=== PATIENT | female | born 1960 | race Caucasian/White ===

== ENCOUNTER 2019-10-03 14:14 | Outpatient (CLI) | payer MEDICARE, SELFPAY ==
--- NOTE | ~2019-10-03 | XR_ITS ---
XR lumbar spine 2-3V DATE: 10/03/2019 15:19 INDICATION: Acute low back pain, radiating down legs. No injury. TECHNIQUE: AP, lateral, coned lateral lumbosacral views COMPARISON: None FINDINGS: There is borderline grade 2/grade 3 spondylolisthesis at L5-S1. There is severe degenerative disc disease at L5-S1. Lumbar interspaces otherwise are relatively preserved. Diffuse osteopenia. No fracture or bone destruction is evident. The included lower thoracic and lumbar pedicles appear in tact. The sacroiliac joints appear normal. Extensive calcification of the abdominal aorta, without evidence of aneurysm. IMPRESSION: Borderline grade 2/grade 3 anterolisthesis at L5-S1 Severe degenerative disc disease at L5-S1 Reviewed, dictated and finalized at location A.
--- NOTE | ~2019-10-03 | US_ITS ---
EXAMINATION: US arterial ankle brachial ind DATE: 10/03/2019 15:07 INDICATION: Bilateral lower extremity pain TECHNIQUE: Segmental pressures and plethysmographic and Doppler waveforms of the brachial and lower e xtremity arteries were obtained. COMPARISON: None. FINDINGS: Right and left brachial artery pressures of 127 mm Hg and 121 mm Hg, respectively, are concordant (no rmal difference <= 30 mmHg). The right ankle-brachial index (SOBIA) is 0.94 (normal >= 0.9-1.0). The right great toe-brachial index (TBI) is 0.86 (normal >= 0.65). Arterial Doppler waveforms are biphasic. The left SOBIA is 0.84. The left TBI is 1.04. Arterial Doppler waveforms are biphasic. IMPRESSION: Mildly diminished left SOBIA of 0.84 Reviewed, dictated and finalized at Location A. Reviewed, dictated and finalized at location A.
== END 2019-10-03 14:15 | disposition home or self-care (01) ==
LOC: ANHIMG 14:20
PROVIDERS: PCP Internal Medicine; Visit Provider Internal Medicine
DX: M79.604 Pain in right leg (principal); I70.0 Atherosclerosis of aorta; M51.37 Other intervertebral disc degeneration, lumbosacral region; M85.88 Other specified disorders of bone density and structure, other site; M79.89 Other specified soft tissue disorders
CPT/HCPCS: 72100; 93922

== ENCOUNTER → 2020-01-26 08:51 | Outpatient (CLI) | payer MEDICARE, SELFPAY ==
--- NOTE | ~2020-01-26 | MMUS_ITS ---
EXAMINATION: MM screening deepthi BI w katarzyna, US breast RT complete HISTORY: Screening mammogram. 12 month follow-up of probably benign right breast mass at 9:00 7 cm fr om nipple TECHNIQUE: Craniocaudal and mediolateral oblique 3-D tomosynthesis images were obtained and synthetic 2-D images were generated. CAD analysis was submitted and interpreted. COMPARISON: 12/20/2018 limited right breast ultrasound 06/02/2018 limited right breast ultrasound 11/23/2017 diagnostic right digital mammogram and limited right breast ultrasound 11/09/2017 bilateral digital screening mammogram BREAST PARENCHYMAL COMPOSITION: The breasts are heterogeneously dense, which may obscure small masses . MAMMOGRAM FINDINGS: There is no evidence of suspicious mass, calcification, or architectural distorti on to suggest malignancy in either breast. There has been no suspicious interval change. LIMITED RIGHT BREAST ULTRASOUND FINDINGS: Previously reported 6 x 3 mm circumscribed parallel hypoech oic mass at 9:00 7 cm from the nipple now measures approximately 2 x 2.7 x 3 mm. This is sonolucent, with through transmission, likely a small cyst. IMPRESSION: 1. No mammographic evidence of malignancy. 2. Recommend routine screening mammography in one year. BI-RADS Category 2: Benign finding(s). Reviewed, dictated and finalized at location A. [facility] SERVICES ASSISTANT IMPRESSION: 1. No mammographic evidence of malignancy. 2. Recommend routine screening mammography in one year. BI-RADS Category 2: Benign finding(s).
== END ==
PROVIDERS: PCP Internal Medicine; Visit Provider Internal Medicine
DX: Z12.31 Encounter for screening mammogram for malignant neoplasm of breast (principal); N63.12 Unspecified lump in the right breast, upper inner quadrant
CPT/HCPCS: 76641; 77063; 77067

== ENCOUNTER → 2021-05-06 09:58 | Outpatient (CLI) | payer MEDICARE, SELFPAY ==
--- NOTE | ~2021-05-06 | MMUS_ITS ---
EXAMINATION: MM diagnostic deepthi BI w katarzyna, US breast LT limited HISTORY: Palpable lump of the lower-outer quadrant of the left breast TECHNIQUE: Craniocaudal, mediolateral, and mediolateral oblique 3-D tomosynthesis images of the guero ts were performed and synthetic 2-D images were generated. CAD analysis was submitted and interpreted . High resolution limited left breast ultrasound was performed. COMPARISON: 02/05/2020, 11/23/2017, 11/09/2017 BREAST PARENCHYMAL COMPOSITION: The breasts are heterogeneously dense, which may obscure small masses . FINDINGS: MAMMOGRAPHIC FINDINGS: No mammographic correlate is identified for the reported palpable abnormality of the left breast. The re is no suspicious mass, calcification, or architectural distortion in either breast to suggest ton gnancy. There has been no suspicious interval change. ULTRASOUND: There is a 9 mm x 2 mm oval, circumscribed, parallel, hypoechoic mass in the skin of the left breast corresponding to the palpable abnormality of concern which appears to demonstrate communication to th e skin surface on some images. IMPRESSION: 1. Findings most consistent with a sebaceous cyst of the left breast corresponding to the palpable ab normality of concern. No mammographic or sonographic evidence of malignancy. Clinical follow-up is re commended. 2. Recommend routine screening mammography in one year. BI-RADS Category 2: Benign finding(s). Reviewed, dictated and finalized at location A. IMPRESSION: 1. Findings most consistent with a sebaceous cyst of the left breast correspond ing to the palpable abnormality of concern. No mammographic or sonographic evid ence of malignancy. Clinical follow-up is recommended. 2. Recommend routine screening mammography in one year. BI-RADS Category 2: Benign finding(s).
== END ==
PROVIDERS: PCP Internal Medicine; Visit Provider Internal Medicine
DX: N64.59 Other signs and symptoms in breast (principal)
CPT/HCPCS: 76642; 77062; 77066; G0279

== ENCOUNTER → 2021-07-10 11:13 | Outpatient (CLI) | payer MEDICARE, SELFPAY ==
--- NOTE | ~2021-07-10 | DEXA_ITS ---
Bone Density Report Name: ROMÁN COHEN Age: 60 Sex: Female Ethnicity: White Date of : 1960 Indication: postmenopausal osteoporosis; height loss; seizure disorder; hysterectomy; Referring Provider: Tad, Sil Barajas Study: Bone densitometry was performed. Exam Date: July 10, 2021 Accession number: [id number] Bone Density: Region BMD T-score Z-score Classification AP Spine (L1-L4) 0.832 -2.0 -0.4 Osteopenia Femoral Neck (Left) 0.668 -1.6 -0.2 Osteopenia Total Hip (Left) 0.758 -1.5 -0.4 Osteopenia Femoral Neck (Right) 0.699 -1.3 0.0 Osteopenia Total Hip (Right) 0.733 -1.7 -0.6 Osteopenia Total Hip Mean 0.746 -1.6 -0.5 Osteopenia World Health Organization criteria for BMD impression classify patients as: Normal (T-score at or above -1.0), Osteopenia (T-score between -1.0 and -2.5), or Osteoporosis (T-score at or below -2.5). 10-year Fracture Risk(1): Major Osteoporotic Fracture 7.8% Hip Fracture 1.2% Reported Risk Factors: [place] (), Neck BMD=0.668, BMI=42.1, smoking (1) FRAX(R) Version 3.08. Fracture probability calculated for an untreated patient. Fracture probability may be lower if the patient has received treatment. Previous Exams: Region Exam Age BMD T-score BMD Change BMD Change Date g/cm2 vs Baseline vs Previous AP Spine(L1-L4) 07/10/2021 60 0.832 -2.0 0.057* 0.057* 11/09/2017 56 0.775 -2.5 Total Hip(Left) 07/10/2021 60 0.758 -1.5 0.037* 0.037* 11/09/2017 56 0.721 -1.8 Total Hip(Right) 07/10/2021 60 0.733 -1.7 0.046* 0.046* 11/09/2017 56 0.687 -2.1 *Denotes significance at 95% confidence level, LSC for AP Spine = 0.022 g/cm2, LSC for Total Hip = 0.027 g/cm2 Clinical Information Provided by Patient: Smokes Has used the following medications: Vitamin D, Calcium Has the following medical conditions: Any Seizure Disorders, Hysterectomy, COPD Patient maximum height was 67 Menopause Age: 46 Drinks caffeinated beverages Onset of menses at age 8.5 Number of children 1 Missed period for more than 6 months in a row Impression: The patient has low bone mass, based on the Total Spine T-score. The patient has an estimated ten-year risk of hip fracture of 1.2% and an estimated ten-year risk of major fracture of 7.8%, based on the WHO FRAX algorithm. The patient has risk factors, including: smoking. No significant bone loss was observed.
== END ==
PROVIDERS: PCP Internal Medicine; Visit Provider Internal Medicine
DX: Z78.0 Asymptomatic menopausal state (principal); M85.88 Other specified disorders of bone density and structure, other site; M85.852 Other specified disorders of bone density and structure, left thigh; M85.851 Other specified disorders of bone density and structure, right thigh
CPT/HCPCS: 77080

== ENCOUNTER 2023-02-18 00:52 | Day surgery (SDC) | payer MEDICARE, SELFPAY ==
[2023-01-28 14:14] VITALS: BMI 39.5
--- NOTE | 2023-02-16 12:16 | SUR.PREOP ---
Patient called regarding upcoming procedure. Reviewed preop instructions, appointment times, and procedure prep.
[2023-02-18 08:53] VITALS: BMI 42.6
[2023-02-18] MEDS: LACTATED RINGERS 1,000 ML 150 ML IV CONT (09:03)
--- NOTE | 2023-02-18 09:13 | P.HP_ITS ---
History of Present Illness History of Present Illness Consent: Risks, benefits, and alternatives have been discussed and questions answered. Patient agrees to proceed with procedure. Chief complaint: hx of colon polyps Narrative: Veronica Carias is a 62 year old female Presents for screening colonoscopy. Patient reports having had colon polyps 5 years ago. Patient denies any abdominal pain. Her bowel habits reported to be normal. Family history noncontributory. Review of Systems Review of Systems: Review of systems noncontributory. [facility] Family History Family History (Updated 09/20/15 @ 23:21 by DOCTOR UNKNOWN) Sibling Patient's sister is in good health Carcinoma of colon Social History Social History Smoking packs per day: 1 Smoking cigarettes per day: 20.0 Years smoked: 40 Smoking pack-years: 40.00 Smoking status: Current every day smoker Tobacco type: cigarettes Smoking end date: 02/22/11 Alcohol intake: never Substance use: never Substance use type: does not use Living arrangements: with family Spiritual care concerns: No Meds Home Medications and Allergies Home Medications Medication Instructions Recorded Confirmed Type alendronate 70 mg tablet 70 mg PO WEEKLY 01/28/23 01/28/23 History carbamazepine 200 mg tablet 400 mg PO TID 01/28/23 02/18/23 History hydrochlorothiazide 12.5 mg tablet 12.5 mg PO DAILY 01/28/23 01/28/23 History levetiracetam 1,000 mg tablet 1,000 mg PO BID 01/28/23 01/28/23 History losartan 50 mg tablet 50 mg PO HS 01/28/23 01/28/23 History rosuvastatin 10 mg tablet 10 mg PO HS 01/28/23 01/28/23 History umeclidinium 62.5 mcg-vilanterol 1 ea inhalation DAILY 01/28/23 02/18/23 History 25 mcg/actuation powdr for inhalation (Anoro Ellipta) Allergies Allergy/AdvReac Type Severity Reaction Status Date / Time Sulfa (Sulfonamide Allergy Mild Unknown Verified 02/18/23 08:38 Antibiotics) codeine Allergy Unknown Unknown Verified 02/18/23 08:38 Penicillins Allergy Unknown Unknown Verified 02/18/23 08:38 sulfanilamide Allergy Unknown Unknown Verified 02/18/23 08:38 sulfur dioxide Allergy Unknown Unknown Verified 02/18/23 08:38 Exam Narrative: Physical exam reveals patient to be alert. Vital signs stable. HEENT exam is unremarkable. Patient is anicteric. Lungs are clear to auscultation and percussion. Heart is without murmur or extra sounds. Abdomen Is obese. bowel sounds are present soft nontender with no organomegaly. Digital external rectal exam is normal. Assessment and Plan Assessment and plan (1) History of colon polyps: Code(s): Z86.010 - Personal history of colonic polyps Status: Acute Assessment and Plan: Patient is reported to have had colon polyps 5 years ago. Plan for surveillance colonoscopy at this time and consider this at intervals in the future.
--- NOTE | 2023-02-18 09:28 | P.PNAN_ITS ---
Anes - Initial Pre Proc Eval Procedure: Operation Date: 02/18/23 10:00 Proposed Procedures p Colonoscopy - Umair Velasquze MD Date/Time: 02/18/23 09:28 Surgeon: Umair Velasquez MD Pre Op Diagnosis: hx of colon polyps Patient Data Age: 62 Gender: F Height: 1.63 m Weight: 112.6 kg Allergies Allergy/AdvReac Type Severity Reaction Status Date / Time Sulfa (Sulfonamide Allergy Mild Unknown Verified 02/18/23 08:38 Antibiotics) codeine Allergy Unknown Unknown Verified 02/18/23 08:38 Penicillins Allergy Unknown Unknown Verified 02/18/23 08:38 sulfanilamide Allergy Unknown Unknown Verified 02/18/23 08:38 sulfur dioxide Allergy Unknown Unknown Verified 02/18/23 08:38 Home Medications Medication Instructions Recorded Confirmed Type alendronate 70 mg tablet 70 mg PO WEEKLY 01/28/23 01/28/23 History carbamazepine 200 mg tablet 400 mg PO TID 01/28/23 02/18/23 History hydrochlorothiazide 12.5 mg tablet 12.5 mg PO DAILY 01/28/23 01/28/23 History levetiracetam 1,000 mg tablet 1,000 mg PO BID 01/28/23 01/28/23 History losartan 50 mg tablet 50 mg PO HS 01/28/23 01/28/23 History rosuvastatin 10 mg tablet 10 mg PO HS 01/28/23 01/28/23 History umeclidinium 62.5 mcg-vilanterol 1 ea inhalation DAILY 01/28/23 02/18/23 History 25 mcg/actuation powdr for inhalation (Anoro Ellipta) Patient hx anesthesia problems: none Family hx anesthesia problems: none Results Review: All pre-operative results and documents have been reviewed as part of the pre- operative evaluation. [facility] Family History Family History (Updated 09/20/15 @ 23:21 by DOCTOR UNKNOWN) Sibling Patient's sister is in good health Carcinoma of colon Social History Social History Smoking packs per day: 1 Smoking cigarettes per day: 20.0 Years smoked: 40 Smoking pack-years: 40.00 Smoking status: Current every day smoker Tobacco type: cigarettes Smoking end date: 02/22/11 Alcohol intake: never Substance use: never Substance use type: does not use Living arrangements: with family Spiritual care concerns: No Anes - Eval Final PreProcedure Day of Procedure 02/18/23 09:28 Patient weight: morbidly obese Heart: regular rate and rhythm Lungs: clear to auscultation Airway: Mallampati scale class III Neurological: alert and oriented Last oral intake: >/= 8 hours ASA classification: III Emergent: no Anesthetic plan: proceed Anesthesia type and monitoring: general GIVS and standard monitoring Results Review: All pre-operative results and documents have been reviewed as part of the pre- operative evaluation. Informed Consent: The patient's anesthetic plan and its attendant risks and benefits were discussed with the patient/family/POA. Questions were solicited and answers provided to the satisfaction of the patient/family/POA.
[2023-02-18 10:15] VITALS: BP 114/74; PULSE 78; RESP 20; O2SAT 95
--- NOTE | 2023-02-18 10:15 | SUR.OPER ---
All of the descending colon polyps did not come through the trap before proceeding to remove sigmoid colon polyps. Therefore descending/sigmoid colon polyp specimen were combined. Dr. Ron armenta.
[2023-02-18 10:25] VITALS: BP 122/78; PULSE 80; RESP 20; O2SAT 97
[2023-02-18 10:35] VITALS: BP 126/80; PULSE 82; RESP 20; O2SAT 98
== END 2023-02-18 10:43 | disposition home or self-care (01) ==
PROVIDERS: PCP Internal Medicine; Visit Provider Internal Medicine Gastroenterology
PROC: 0DJD8ZZ Inspection of Lower Intestinal Tract, Via Natural or Artificial Opening Endoscopic (ICD-10-PCS; CPT 45378; principal; 2023-02-18 10:00)
DX: Z12.11 Encounter for screening for malignant neoplasm of colon (principal); D12.5 Benign neoplasm of sigmoid colon; D12.4 Benign neoplasm of descending colon; K57.30 Diverticulosis of large intestine without perforation or abscess without bleeding; K64.8 Other hemorrhoids; Z87.891 Personal history of nicotine dependence
CPT/HCPCS: 45385; 88305; J2704; J7120

== ENCOUNTER 2023-08-11 09:17 | Outpatient (CLI) | payer MEDICARE, SELFPAY ==
--- NOTE | ~2023-08-11 | MM_ITS ---
EXAMINATION: MM screening deepthi BI w katarzyna HISTORY: Screening TECHNIQUE: Craniocaudal and mediolateral oblique 3-D tomosynthesis images were obtained and synthetic 2-D images were generated. CAD analysis was submitted and interpreted. COMPARISON: Comparison to multiple prior studies sequentially, with oldest reviewed study dated 10/21. BREAST PARENCHYMAL COMPOSITION: Dense: The breasts are heterogeneously dense, which may obscure small masses FINDINGS: There are developing asymmetries in the right breast on MLO view which are obscured by dens e fibroglandular tissue. The left breast is stable without evidence for malignancy. IMPRESSION: 1. Developing right breast asymmetries. 2. Additional mammographic views and possible breast ultrasound are recommended. BI-RADS Category 0: Incomplete: Needs additional imaging evaluation. Reviewed, dictated and finalized at location B. IMPRESSION: 1. Developing right breast asymmetries. 2. Additional mammographic views and possible breast ultrasound are recommended . BI-RADS Category 0: Incomplete: Needs additional imaging evaluation.
--- NOTE | ~2023-08-11 | DEXA_ITS ---
Bone Density Report Name: ROMÁN COHEN Age: 62 Sex: Female Ethnicity: White Date of : 1960 Indication: postmenopausal; screening for osteoporosis; height loss; seizure disorder; asthma or emphysema; hysterectomy; Referring Provider: STU, RUBÉN Barajas Study: Bone densitometry was performed. Exam Date: August 11, 2023 Accession number: [id number] Bone Density: Region BMD T-score Z-score Classification AP Spine(L1-L4) 0.740 -2.8 -1.1 Osteoporosis Femoral Neck (Left) 0.623 -2.0 -0.5 Osteopenia Total Hip (Left) 0.729 -1.7 -0.5 Osteopenia Femoral Neck (Right) 0.605 -2.2 -0.7 Osteopenia Total Hip (Right) 0.681 -2.1 -0.9 Osteopenia Total Hip Mean 0.705 -1.9 -0.7 Osteopenia World Health Organization criteria for BMD impression classify patients as: Normal (T-score at or above -1.0), Osteopenia (T-score between -1.0 and -2.5), or Osteoporosis (T-score at or below -2.5). 10-year Fracture Risk: FRAX not reported because: Some T-score for Spine Total or Hip Total or Femoral Neck at or below -2.5 Treated for osteoporosis Clinical Information Provided by Patient: Smokes Is being treated for osteoporosis Has used the following medications: Vitamin D, Calcium Has the following medical conditions: Any Seizure Disorders, Asthma or Emphysema, Hysterectomy Patient maximum height was 67 Menopause Age: 46 Drinks caffeinated beverages Onset of menses at age 9 Number of children 1 Impression: The patient has osteoporosis, based on the Total Spine T-score. The patient has risk factors, including: smoking. Discussion: It is important to ask patients whether they are taking their medications and to encourage continued and appropriate compliance with their osteoporosis therapies to reduce fracture risk. It is also important to review their risk factors and encourage appropriate calcium and vitamin D intakes, exercise, fall prevention and other lifestyle measures. Follow-Up: Consider a repeat BMD and Vertebral Fracture Assessment (VFA) exam in 2 years or sooner if medically necessary, to reassess this patient's status. Reported by: ARCHANA on 08/11/2023 9:58:00 AM. Reviewed, dictated and finalized at location Lauren BERMUDEZ
== END 2023-08-11 09:18 | disposition home or self-care (01) ==
LOC: ANHIMG 09:19
PROVIDERS: PCP Internal Medicine; Visit Provider Internal Medicine
DX: Z12.31 Encounter for screening mammogram for malignant neoplasm of breast (principal); Z78.0 Asymptomatic menopausal state; R92.8 Other abnormal and inconclusive findings on diagnostic imaging of breast; M81.0 Age-related osteoporosis without current pathological fracture; M85.852 Other specified disorders of bone density and structure, left thigh; M85.851 Other specified disorders of bone density and structure, right thigh
CPT/HCPCS: 77063; 77067; 77080